=== PATIENT | female | born 1935 | race African-American/Black ===

== ENCOUNTER 2020-01-29 16:54 | Outpatient (CLI) | payer OTHER, SELFPAY ==
--- NOTE | ~2020-01-29 | XR_ITS ---
EXAMINATION: XR chest 2V EXAM DATE: 01/29/2020 17:19 INDICATION: Cough, asthma. TECHNIQUE: Frontal and lateral projections of the chest obtained and reviewed. There is no prior ryann dy for comparison. FINDINGS: The lungs are clear. There are no pleural effusions. The cardiomediastinal silhouette is within normal limits. There is no pneumothorax suspected. 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 Some hyperinflation. IMPRESSION: 1. No acute cardiopulmonary findings. 2. Hyperinflation. Reviewed, dictated and finalized at location A. [facility]
== END 2020-01-29 16:55 | disposition home or self-care (01) ==
LOC: ANHIMG 17:03
PROVIDERS: Visit Provider Psychiatry & Neurology Neurology
DX: R05 Cough (principal); R91.8 Other nonspecific abnormal finding of lung field
CPT/HCPCS: 71046